=== PATIENT | female | born 1940 | race Caucasian/White ===

== ENCOUNTER 2019-09-30 14:43 | Emergency (ER) | payer MEDICARE, BC ==
[2019-09-30 15:45] LABS: ABS Eosinophils 0.1 10^3/ul (0-0.6); ABS Lymphocytes 2.2 10^3/ul (1.0-4.8); ABS Monocytes 0.5 10^3/ul (0-0.8); ABS Neutrophils 3.7 10^3/ul (1.5-7.7); Eosinophil % 1.5 %; Hematocrit 38 % (35-47); Hemoglobin 13.2 g/dL (12.0-16.0); Mean Corpuscular HGB Conc 35 g/dL (31-36); Mean Corpuscular Hemoglobin 32 pg (27-31); Mean Corpuscular Volume 91 fL (80-97); Mean Platelet Volume 7.6 fL (7.4-10.4); Platelet Count 197 10^3/uL (150-450); Red Blood Count 4.17 10^6 /uL (3.70-4.87); Red Cell Distribution Width 13 % (10-15); White Blood Count 6.5 10^3/uL (3.5-10.8)
[2019-09-30 15:52] LABS: Albumin/Globulin Ratio 1.5 (1-3); BUN/Creatinine Ratio 18.9 (8-20); Calcium 9.9 mg/dL (8.6-10.3); EGFR African American 73.5 (>60); EGFR Non-African American 60.7 (>60); Globulin 2.7 g/dL (2-4); Potassium 4.2 mmol/L (3.5-5.0); Total Bilirubin 0.7 mg/dL (0.2-1.0); Total Protein 6.7 g/dL (6.4-8.9)
[2019-09-30 16:34] VITALS: BP 152/74
--- NOTE | 2019-09-30 16:44 | ED ---
Syncope/Near Syncope - HPI Summary HPI Summary: This patient is a 79-year-old female who presents to the ED after a syncopal episode at the gym after getting out of the hot tub. She states she fell she was in the hot tub for too long and when she mentioned this to her friend and cut out she then had her syncopal episode. She does not recall the syncopal episode, but states her friend said she was sitting down at the time and then passed out for approximately 1 minute. She doesn't recall passing out and had no symptoms after wakening. She denies any headache, visual changes, chest pain , shortness of breath. On arrival into the ED, the patient appears well and states she is asymptomatic. She does state this has happened to her in the past after getting out of the hot tub after staying in too long. She denies any cardiac history, denies any pulmonary history. History of syncopal episodes only related to the hot tub. History of thyroid disorder. PCP is Dedra Glynn MD. - History Of Current Complaint Chief Complaint: EDSyncope Time Seen by Provider: 09/30/19 15:08 Hx Obtained From: Patient Onset/Duration: Sudden Onset Timing: Constant Context: Witnessed Associated Head Trauma: No Aggravating Factor(s): Nothing Alleviating Factor(s): Spontaneous Resolution Associated Signs And Symptoms: Negative Related History: Similar Episode/Dx as - previous syncopal episode related to hot tub exposure - Risk Factors Cardiac Risk Factors: Negative Dysrhythmia Risk Factors: Negative Risk Factor(s): Negative - Allergies/Home Medications Allergies/Adverse Reactions: Allergies Allergy/AdvReac Type Severity Reaction Status Date / Time meperidine [From Demerol] Allergy See Comment Verified 09/30/19 15:07 "anesthesia" Allergy See Comment Uncoded 09/30/19 15:07 Home Medications: Home Medications Ascorbic Acid TAB* [Vitamin C TAB*] 1,000 mg PO DAILY 09/30/19 [History Confirmed 09/30/19] Calcium Carbonate [Calcium] 600 mg PO DAILY 09/30/19 [History Confirmed 09/30/19 ] Cholecalciferol (Vitamin D3) [Vitamin D3] 1,000 unit PO DAILY 09/30/19 [History Confirmed 09/30/19] Cyanocobalamin TAB* [Vitamin B12 TAB*] 1,000 mcg PO DAILY 09/30/19 [History Confirmed 09/30/19] Docusate CAP* [Colace Cap*] 100 - 200 mg PO DAILY PRN 09/30/19 [History Confirmed 09/30/19] Estradiol VAGINAL TAB(NF) [Vagifem] 10 mcg VAGINAL WEEKLY 09/30/19 [History Confirmed 09/30/19] Levothyroxine TAB* [Synthroid TAB*] 88 mcg PO DAILY 09/30/19 [History Confirmed 09/30/19] Magnesium Oxide [Magnesium] 250 - 500 mg PO DAILY 09/30/19 [History Confirmed ] [place]-3 Fatty Acids (Nf) [Fish Oil (NF)] 1,000 mg PO DAILY 09/30/19 [History Confirmed 09/30/19] Ubidecarenone [Coenzyme Q10] 100 mg PO DAILY 09/30/19 [History Confirmed ] Vitamin E CAP* 200 unit PO DAILY 09/30/19 [History Confirmed 09/30/19] PMH/Surg Hx/FS Hx/Imm Hx Previously Healthy: Yes Endocrine/Hematology History: Reports: Hx Thyroid Disease Denies: Hx Diabetes Cardiovascular History: Denies: Hx Hypertension, Hx Pacemaker/ICD GI History: Reports: Other GI Disorders - CONSTIPATION History: Denies: Hx Dialysis, Hx Renal Disease Musculoskeletal History: Reports: Hx Arthritis - RIGHT SHOULDER, RIGHT HIP OSTEO Sensory History: Reports: Hx Cataracts - BILAT, Hx Contacts or Glasses - GLASSES Denies: Hx Hearing Aid Opthamlomology History: Reports: Hx Cataracts - BILAT, Hx Contacts or Glasses - GLASSES Psychiatric History: Denies: Hx Panic Disorder - Cancer History Hx Chemotherapy: No Hx Radiation Therapy: No - Surgical History Surgery Procedure, Year, and Place: D&C Hx Anesthesia Reactions: No - Immunization History Hx Pertussis Vaccination: No Immunizations Up to Date: Yes Infectious Disease History: No Infectious Disease History: Denies: Traveled Outside the [place] in Last 30 Days - Social History Occupation: Unemployed Lives: With Family Alcohol Use: Occasionally Alcohol Amount: 3 DRINKS WEEKLY Hx Substance Use: Yes Substance Use Type: Reports: Marijuana Substance Use Comment - Amount & Last Used: OCCASIONAL SMOKED 2 WEEKS AGO Hx Tobacco Use: Yes Smoking Status (MU): Former Smoker Review of Systems Constitutional: Negative Negative: Fever, Chills, Fatigue, Skin Diaphoresis Negative: Palpitations, Chest Pain Negative: Shortness Of Breath, Cough Genitourinary: Negative Positive: no symptoms reported, see HPI Negative: Arthralgia Skin: Negative Positive: Syncope. Negative: Headache, Weakness, Paresthesia, Numbness All Other Systems Reviewed And Are Negative: Yes Physical Exam Triage Information Reviewed: Yes Vital Signs On Initial Exam: Initial Vitals Temp Pulse Resp BP Pulse Ox 96.7 F 56 16 167/71 98 09/30/19 15:03 09/30/19 15:03 09/30/19 15:03 09/30/19 15:03 09/30/19 15:03 Vital Signs Reviewed: Yes Appearance: Positive: Well-Appearing, Well-Nourished Skin: Positive: Warm, Skin Color Reflects Adequate Perfusion Head/Face: Positive: Normal Head/Face Inspection Eyes: Positive: EOMI, JORDANA, Conjunctiva Clear Neck: Positive: Supple, No Lymphadenopathy Respiratory/Lung Sounds: Positive: Clear to Auscultation, Breath Sounds Present Cardiovascular: Positive: Normal, Pulses are Symmetrical in both Upper and Lower Extremities Musculoskeletal: Positive: Normal, Strength/ROM Intact Neurological: Positive: Speech Normal Psychiatric: Positive: Normal, Affect/Mood Appropriate Procedures - Sedation Patient Received Moderate/Deep Sedation with Procedure: No Diagnostics - Vital Signs Vital Signs Temp Pulse Resp BP Pulse Ox 09/30/19 16:20 97.8 F 51 16 152/74 98 09/30/19 16:19 14 152/74 09/30/19 16:03 57 16 192/83 97 09/30/19 16:00 54 15 99 09/30/19 15:52 54 15 100 09/30/19 15:34 168/57 09/30/19 15:03 96.7 F 56 16 167/71 98 - Laboratory Lab Results: Lab Results 09/30/19 09/30/19 Range/Units 15:24 15:24 WBC 6.5 (3.5-10.8) 10^3/uL RBC 4.17 (3.70-4.87) 10^6 /uL Hgb 13.2 (12.0-16.0) g/dL Hct 38 (35-47) % MCV 91 (80-97) fL MCH 32 H (27-31) pg MCHC 35 (31-36) g/dL RDW 13 (10-15) % Plt Count 197 (150-450) 10^3/uL MPV 7.6 (7.4-10.4) fL Neut % (Auto) 56.5 % Lymph % (Auto) 34.0 % [place] % (Auto) 7.4 % Eos % (Auto) 1.5 % Baso % (Auto) 0.6 % Absolute Neuts (auto) 3.7 (1.5-7.7) 10^3/ul Absolute Lymphs (auto) 2.2 (1.0-4.8) 10^3/ul Absolute Monos (auto) 0.5 (0-0.8) 10^3/ul Absolute Eos (auto) 0.1 (0-0.6) 10^3/ul Absolute Basos (auto) 0.0 (0-0.2) 10^3/ul Absolute Nucleated RBC 0.0 10^3/ul Nucleated RBC % 0.0 Sodium 137 (135-145) mmol/L Potassium 4.2 (3.5-5.0) mmol/L Chloride 104 (101-111) mmol/L Carbon Dioxide 26 (22-32) mmol/L Anion Gap 7 (2-11) mmol/L BUN 17 (6-24) mg/dL Creatinine 0.90 (0.51-0.95) mg/dL Est GFR ( Amer) 73.5 (>60) Est GFR (Non-Af Amer) 60.7 (>60) BUN/Creatinine Ratio 18.9 (8-20) Glucose 107 H (70-100) mg/dL Calcium 9.9 (8.6-10.3) mg/dL Total Bilirubin 0.70 (0.2-1.0) mg/dL AST 18 (13-39) U/L ALT 15 (7-52) U/L Alkaline Phosphatase 47 (34-104) U/L Total Protein 6.7 (6.4-8.9) g/dL Albumin 4.0 (3.2-5.2) g/dL Globulin 2.7 (2-4) g/dL Albumin/Globulin Ratio 1.5 (1-3) Result Diagrams: 09/30/19 15:24 09/30/19 15:24 Lab Statement: Any lab studies that have been ordered have been reviewed, and results considered in the medical decision making process. Course/Dx Course Of Treatment: During his course of treatment, the patient's evaluated for a syncopal episode which lasted approximately 1 minute. She denies cardiac history. On arrival into the ED, the patient appears well. She is asymptomatic. She denies any chest pain, shortness of breath. Vital signs are stable on arrival except for bradycardia at 55-60. Patient states this is normal for her. EKG obtained which shows a sinus bradycardia with a rate of 54. Denies any chest pain or shortness of breath. Patient is kept on a cardiopulmonary monitor for 1.5 hours while labs were drawn. Labs obtained which are unremarkable. Discussed results with the patient. This patient is asymptomatic, she is able to be discharged home at this time. She is diagnosed with heat exhaustion and vasovagal reaction from the hot tub as well as syncopal episode. Patient would like labs to be sent to her PCP. She is okay for discharge at this time. - Diagnoses Differential Diagnosis/HQI/PQRI: Positive: Hyperventilation, Hypoglycemia, Hypovolemia, Metabolic Reaction, Vasovagal Episode Provider Diagnoses: Heat exhaustion, Vasovagal attack, Syncope Discharge ED - Sign-Out/Discharge Documenting (check all that apply): Patient Departure - Discharge Plan Condition: Stable Disposition: HOME Patient Education Materials: Heat Exhaustion (ED), Syncope in Older Adults (ED) Referrals: Dedra Velez MD [Primary Care Provider] - Additional Instructions: Drink plenty of fluids Rest this evening Do not stay in hot tub for over 15 minutes at a time without taking breaks - you can overheat - Billing Disposition and Condition Condition: STABLE Disposition: Home - Attestation Statements Provider Attestation: pt seen by midlevel provider independently, based on their assessment, it was not necessary to present the case to me but I was available for consultation. I did not form a physician-patient relationship with the patient. The chart however, has been reviewed. am signing this note strictly in an administrative capacity.
== END 2019-09-30 16:20 | disposition home or self-care (01) ==
LOC: ED 14:43
DX: T67.5XXA Heat exhaustion, unspecified, initial encounter (principal); R55 Syncope and collapse; X58.XXXA Exposure to other specified factors, initial encounter; Y92.89 Other specified places as the place of occurrence of the external cause; E03.9 Hypothyroidism, unspecified; Z87.891 Personal history of nicotine dependence; Z79.890 Hormone replacement therapy; Z79.899 Other long term (current) drug therapy; Z88.4 Allergy status to anesthetic agent; Z88.5 Allergy status to narcotic agent
CPT/HCPCS: 36415; 80053; 85025; 93005; 99283